=== PATIENT | female | born 1950 | race Caucasian/White ===

== ENCOUNTER 2019-10-06 19:10 | Emergency (ER) | payer SELFPAY ==
[~2019-10-06] VITALS: Ht 165.1 cm; Wt 75.0 kg
[2019-10-06 19:16] VITALS: Ht 165.1 cm; Wt 75.0 kg
[2019-10-06] MEDS ORDERED: ISOSORBIDE MONO60 M1 PO (19:18)
[2019-10-06] MEDS ORDERED: PRAVACHOL40 MG PO (19:19)
[2019-10-06] MEDS ORDERED: PROTONIX40 MG PO (19:19)
[2019-10-06] MEDS ORDERED: NITROQUICK0.4 MG SL (19:19)
[2019-10-06] MEDS ORDERED: OXYBUTYNIN CHLOR5 M1 PO (19:19)
[2019-10-06 19:41] LABS: BASOPHILS 0.6 % (0-2); HEMATOCRIT 37.8 % (36.0-48.0); IMMATURE GRANULOCYTES 0.3 % (0-5); MCH 31.6 pg (26.0-34.0); MCHC 34.4 g/dL (31.0-37.0); MCV 91.7 fL (80.0-100.0); MONOCYTES 12.7 % (2-11); NEUTROPHILS 51.4 % (40-80); PLATELET COUNT 243 10x3/uL (130-400); RBC 4.12 10x6/uL (4.00-5.40); RDW 13.1 % (11.5-14.5); WBC 6.8 10x3/uL (4.8-10.8)
[2019-10-06 19:56] LABS: CALC OSMOLALITY 275 mosm/kg (275-300); CALCIUM 8.7 mg/dL (8.5-10.1); CARBON DIOXIDE 27.3 mmol/L (21.0-32.0); CHLORIDE - SERUM 102 mmol/L (98-107); CREATININE - SERUM 0.9 mg/dL (0.6-1.3); GLUCOSE 115 mg/dL (74-106); POTASSIUM - SERUM 3.3 mmol/L (3.5-5.1); SODIUM 138 mmol/L (136-145); UREA NITROGEN 9 mg/dL (7-18); eGFR NON AFRICAN AMERICAN 65 mL/min (90-120)
[2019-10-06 20:02] LABS: BILIRUBIN NEGATIVE (NEGATIVE); GLUCOSE NEGATIVE (NEGATIVE); KETONE NEGATIVE (NEGATIVE); NITRITE NEGATIVE (NEGATIVE); UROBILINOGEN NORMAL (NORMAL)
[2019-10-06 20:06] LABS: ALBUMIN 3.4 g/dL (3.4-5.0); ALKALINE PHOSPHATASE 67 U/L (30-120); ALT (SGPT) 16 U/L (10-68); AMYLASE - SERUM 38 U/L (25-115); BILIRUBIN - TOTAL 0.38 mg/dL (0.2-1.3); LIPASE 126 U/L (73-393); PROTEIN - SERUM 6.9 g/dL (6.4-8.2); TROPONIN-I < 0.017 ng/mL (0.000-0.060)
[2019-10-06] MEDS ORDERED: ACETAMINOPHEN500 M1 PO (21:45)
[2019-10-06] MEDS ORDERED: LEVSIN/ANASP0.125 MG PO (21:45)
[2019-10-06] MEDS ORDERED: PEPCID40 MG PO (21:45)
[2019-10-06 22:59] VITALS: BP 154/76
== END 2019-10-06 23:00 | disposition home or self-care (01) ==
LOC: D.ER 19:10
PROVIDERS: Family Medicine
DX: R10.11 Right upper quadrant pain (principal)